=== PATIENT | male | born 1960 | race Caucasian/White ===

== ENCOUNTER → 2019-02-28 | Outpatient (CLI) | payer OTHER ==
--- NOTE | 2019-02-28 08:56 | NM ---
EXAMINATION TYPE: NM hepatobiliary w EF DATE OF EXAM: 02/28/2019 COMPARISON: NONE HISTORY: 02/02/2014 TECHNIQUE: After the intravenous administration of 4.9 mCi Tc 99m Mebrofenin hepatobiliary scintigrap hy is performed. Immediate images post injection. FINDINGS: There is satisfactory initial accumulation of tracer by the liver. The gallbladder is visualized wit hin 10 minutes. The small bowel activity is noted within Aishwarya minutes. At one hour 8 ounces of oral ensure plus is given to mimic CCK and gallbladder ejection fraction is calculated at 79 %, in th e normal range. Therefore there is no scintigraphic evidence of cystic or common bile duct obstructi on to suggest acute cholecystitis or gallbladder dyskinesia. IMPRESSION: Exam is within normal limits.
== END | disposition home or self-care (01) ==
LOC: RADNMMAIN 06:41
PROVIDERS: ATTEND Internal Medicine
DX: R10.9 Unspecified abdominal pain (principal)
CPT/HCPCS: 78226; A9537

== ENCOUNTER → 2020-04-02 | Outpatient (CLI) | payer OTHER ==
--- NOTE | 2020-04-02 08:02 | US ---
EXAMINATION TYPE: US abdomen complete DATE OF EXAM: 04/02/2020 COMPARISON: NONE CLINICAL HISTORY: R10.84 abd pain, N41.0 Acute prostatitis. EXAM MEASUREMENTS: Liver Length: 15.9 cm Gallbladder Wall: 0.2 cm CBD: 0.3 cm Spleen: 12.2 cm Right Kidney: 12.3 x 5.3 x 5.9 cm Left Kidney: 12.5 x 6.3 x 6.0 cm Pancreas: Obscured by bowel gas Liver: mild attenuation Gallbladder: wnl Evidence for sonographic Madrid's sign: no CBD: wnl Spleen: wnl Right Kidney: mildly enlarged Left Kidney: cyst measuring 1.2 x 1.0 x 1.2cm, mildly enlarged Upper IVC: wnl Abd Aorta: slight dilatation of iliacs, right measuring 1.3, left 1.1cm The intrahepatic portion of the IVC and proximal abdominal aorta are within normal limits. There is no evidence of cholelithiasis. Common bile duct is unremarkable. The visualized portions of the tee creas are homogenous. The spleen is unremarkable. Kidneys are symmetric and free of hydronephrosis. IMPRESSION: 1. Mild fatty hepatic infiltration. 2. Left renal cyst.
== END | disposition home or self-care (01) ==
LOC: RADUSWWP 07:05
PROVIDERS: ATTEND Family Medicine
DX: N28.1 Cyst of kidney, acquired (principal); K76.0 Fatty (change of) liver, not elsewhere classified
CPT/HCPCS: 76700

== ENCOUNTER 2020-07-04 08:42 | Day surgery (SDC) | payer OTHER ==
[2020-07-02 10:36] VITALS: BMI 33.3
[~2020-07-04 08:42] MED LIST: LACTATED RINGERS 1,000 ML IV SCH; LIDOCAINE 1% (10MG/ML) FOR IV START INTRADERMA PRN
[2020-07-04 09:04] VITALS: TEMP 97.2
[2020-07-04] MEDS ORDERED: PROPOFOL 10 MG/ML 20 ML VIAL IV ONE (09:35)
[2020-07-04] MEDS ORDERED: LIDOCAINE 1% INJ 10MG/ML (20 ML MDV) ONE (09:35)
--- NOTE | 2020-07-04 09:47 | P.PCN ---
Date of Procedure: 07/04/20 Procedure(s) Performed: BRIEF HISTORY: Patient is a 60-year-old, pleasant, white male scheduled for an upper endoscopy as a part of evaluation of long-standing history of GERD. He was recently started on Protonix 40 mg daily and no improvement in his symptoms. PROCEDURE PERFORMED: Esophagogastroduodenoscopy with biopsy. PREOPERATIVE DIAGNOSIS: Long-standing history of GERD. IV sedation per anesthesia. PROCEDURE: After informed consent was obtained, the patient was brought into the endoscopy unit. IV sedation was administered by Anesthesia under continuous monitoring. Initially the Olympus GIF-140 video endoscope was inserted into the mouth. Esophagus intubated without any difficulty. It was gradually advanced into the stomach and duodenum and carefully examined. The bulb and the second part of the duodenum appeared normal. The scope at this time was withdrawn to the stomach, adequately insufflated with air, and upon careful examination, mucosa of the antrum, had patchy areas of erythema noted and biopsies were done from this area. The body, cardia and the fundus appeared normal. The scope was then withdrawn into the esophagus. The GE junction was located at 45 cm from the incisors. The esophagus appeared normal. There were no erosions or ulcerations seen and biopsies were done from the distal esophagus and the patient tolerated the procedure well. IMPRESSION: 1. Normal-appearing esophagus with no evidence of esophagitis or Ramachandran's esophagus. 2. Mild antral gastritis. RECOMMENDATIONS: The findings of this examination were discussed with the patient as well as his family. He was advised to follow with the biopsy results. In the meantime he will increase the Protonix 40 mg twice daily and follow antireflux measures and he will be seen in office in one to 2 weeks..
[2020-07-04 10:15] VITALS: BP 123/79; PULSE 58; RESP 16
== END 2020-07-04 10:30 | disposition home or self-care (01) ==
LOC: ORWHC2ENDO 08:42
PROVIDERS: ATTEND Internal Medicine Gastroenterology
DX: K29.70 Gastritis, unspecified, without bleeding (principal); K21.9 Gastro-esophageal reflux disease without esophagitis; K31.9 Disease of stomach and duodenum, unspecified; E78.5 Hyperlipidemia, unspecified; Z79.899 Other long term (current) drug therapy; Z79.82 Long term (current) use of aspirin; Z88.8 Allergy status to other drugs, medicaments and biological substances
CPT/HCPCS: 88305; 43239; J2001; J2704

== ENCOUNTER 2021-02-17 16:29 | Emergency (ER) | payer OTHER ==
[2021-02-17 16:51] VITALS: RESP 18
[2021-02-17] MEDS ORDERED: SODIUM CHLORIDE 0.9% 1,000 ML IV STA (17:52)
[2021-02-17] MEDS ORDERED: MAG HYDROX/AL HYDROX/SIMETH 30 ML, HYOSCYAMINE ELIXIR 10 ML, LIDOCAINE VISCOUS 2% 10 ML PO STA ×3 (17:54)
--- NOTE | 2021-02-17 17:59 | ED ---
General Adult HPI - General Chief complaint: Abdominal Pain Stated complaint: Acid Reflux Time Seen by Provider: 02/17/21 17:30 Source: patient, family, RN notes reviewed Mode of arrival: ambulatory Limitations: no limitations - History of Present Illness Initial comments: Patient is a pleasant 60-year-old male presenting to the emergency department with concerns for possible acid reflux. Patient has had chronic symptoms for years. Symptoms have been worse the past 3 or 4 days. Patient has discomfort in his throat as well as his neck and upper back. Patient also has some abdominal discomfort. Patient denies having any chest discomfort. Patient did go to the chiropractor which usually helps for this however did not have improvement with that. Patient did have recent stress test that was reported as normal to him. Patient also recently had upper endoscopy. - Related Data Home Medications Medication Instructions Recorded Confirmed Aspirin EC [Ecotrin] 81 mg PO DAILY 05/01/14 07/02/20 Atorvastatin [Lipitor] 20 mg PO DAILY 05/01/14 07/02/20 Multivitamins, Thera [Multivitamin] 1 each PO DAILY 05/01/14 07/02/20 Allergies Allergy/AdvReac Type Severity Reaction Status Date / Time STEROIDS Allergy Swelling Uncoded 02/17/21 16:51 Review of Systems ROS Statement: Those systems with pertinent positive or pertinent negative responses have been documented in the HPI. ROS Other: All systems not noted in ROS Statement are negative. Constitutional: Denies: fever Eyes: Denies: eye pain ENT: Reports: as per HPI, throat pain. Denies: ear pain Respiratory: Denies: cough, dyspnea Cardiovascular: Denies: chest pain Endocrine: Reports: fatigue Gastrointestinal: Reports: as per HPI, abdominal pain Genitourinary: Denies: dysuria Musculoskeletal: Reports: as per HPI, back pain Skin: Denies: rash Neurological: Denies: weakness Past Medical History Past Medical History: GERD/Reflux, Hyperlipidemia History of Any Multi-Drug Resistant Organisms: None Reported Past Surgical History: Heart Catheterization Additional Past Surgical History / Comment(s): COLONOSCOPY Past Anesthesia/Blood Transfusion Reactions: No Reported Reaction Past Psychological History: No Psychological Hx Reported Smoking Status: Never smoker Past Alcohol Use History: Rare Past Drug Use History: None Reported - Past Family History Mother Family Medical History: No Reported History General Exam Limitations: no limitations General appearance: alert, in no apparent distress Head exam: Present: normocephalic Eye exam: Present: normal appearance Neck exam: Present: normal inspection Respiratory exam: Present: normal lung sounds bilaterally Cardiovascular Exam: Present: regular rate, normal rhythm Expanded Peripheral pulses: 2+: Radial (R), Radial (L), Dorsalis Pedis (R), Dorsalis Pedis (L) GI/Abdominal exam: Present: soft, tenderness (Mild epigastric and lower abdominal discomfort) Extremities exam: Present: normal inspection. Absent: pedal edema, calf tenderness Back exam: Present: tenderness (Mild tenderness left upper thoracic region, lateral to T3-T4) Neurological exam: Present: alert Psychiatric exam: Present: normal affect, normal mood Skin exam: Present: normal color Course Vital Signs 02/17/21 02/17/21 02/17/21 16:46 18:05 19:00 Temperature 98.6 F 97.8 F Pulse Rate 91 87 63 Respiratory 18 18 18 Rate Blood Pressure 151/94 124/89 152/66 O2 Sat by Pulse 97 96 98 Oximetry EKG Findings - EKG Comments: EKG Findings:: Normal sinus rhythm with a rate of 86. W[place] 158. QRS 108. QT 380. QTC 454. Normal axis. Normal QRS. No acute ST change. Medical Decision Making - Medical Decision Making Patient reevaluated and significant improvement following GI cocktail. Patient requests discharge home. Patient and family updated on results and need for follow-up. Patient states he used to be on Nexium which helped him a lot however prescription cost for him was too high. Patient is advised to consider taking this [id number]. - Lab Data Result diagrams: 02/17/21 17:50 02/17/21 17:50 Lab Results 02/17/21 02/17/21 02/17/21 Range/Units 17:50 17:50 17:50 WBC 9.0 (3.8-10.6) k/uL RBC 4.82 (4.30-5.90) m/uL Hgb 14.4 (13.0-17.5) gm/dL Hct 43.1 (39.0-53.0) % MCV 89.4 (80.0-100.0) fL MCH 29.8 (25.0-35.0) pg MCHC 33.4 (31.0-37.0) g/dL RDW 12.6 (11.5-15.5) % Plt Count 231 (150-450) k/uL MPV 7.6 Neutrophils % 62 % Lymphocytes % 27 % Monocytes % 7 % Eosinophils % 1 % Basophils % 0 % Neutrophils # 5.6 (1.3-7.7) k/uL Lymphocytes # 2.5 (1.0-4.8) k/uL Monocytes # 0.6 (0-1.0) k/uL Eosinophils # 0.1 (0-0.7) k/uL Basophils # 0.0 (0-0.2) k/uL PT 10.1 (9.0-12.0) sec INR 0.9 (<1.2) APTT 23.8 (22.0-30.0) sec Sodium 138 (137-145) mmol/L Potassium 4.0 (3.5-5.1) mmol/L Chloride 104 (98-107) mmol/L Carbon Dioxide 25 (22-30) mmol/L Anion Gap 9 mmol/L BUN 30 H (9-20) mg/dL Creatinine 0.84 (0.66-1.25) mg/dL Est GFR (CKD-EPI)AfAm >90 (>60 ml/min/1.73 sqM) Est GFR (CKD-EPI)NonAf >90 (>60 ml/min/1.73 sqM) Glucose 102 H (74-99) mg/dL Calcium 9.4 (8.4-10.2) mg/dL Total Bilirubin 0.3 (0.2-1.3) mg/dL AST 35 (17-59) U/L ALT 26 (4-49) U/L Alkaline Phosphatase 42 (38-126) U/L Troponin I (0.000-0.034) ng/mL Total Protein 6.8 (6.3-8.2) g/dL Albumin 4.2 (3.5-5.0) g/dL Amylase 63 (30-110) U/L Lipase 180 (23-300) U/L 02/17/21 Range/Units 17:50 WBC (3.8-10.6) k/uL RBC (4.30-5.90) m/uL Hgb (13.0-17.5) gm/dL Hct (39.0-53.0) % MCV (80.0-100.0) fL MCH (25.0-35.0) pg MCHC (31.0-37.0) g/dL RDW (11.5-15.5) % Plt Count (150-450) k/uL MPV Neutrophils % % Lymphocytes % % Monocytes % % Eosinophils % % Basophils % % Neutrophils # (1.3-7.7) k/uL Lymphocytes # (1.0-4.8) k/uL Monocytes # (0-1.0) k/uL Eosinophils # (0-0.7) k/uL Basophils # (0-0.2) k/uL PT (9.0-12.0) sec INR (<1.2) APTT (22.0-30.0) sec Sodium (137-145) mmol/L Potassium (3.5-5.1) mmol/L Chloride (98-107) mmol/L Carbon Dioxide (22-30) mmol/L Anion Gap mmol/L BUN (9-20) mg/dL Creatinine (0.66-1.25) mg/dL Est GFR (CKD-EPI)AfAm (>60 ml/min/1.73 sqM) Est GFR (CKD-EPI)NonAf (>60 ml/min/1.73 sqM) Glucose (74-99) mg/dL Calcium (8.4-10.2) mg/dL Total Bilirubin (0.2-1.3) mg/dL AST (17-59) U/L ALT (4-49) U/L Alkaline Phosphatase (38-126) U/L Troponin I <0.012 (0.000-0.034) ng/mL Total Protein (6.3-8.2) g/dL Albumin (3.5-5.0) g/dL Amylase (30-110) U/L Lipase (23-300) U/L - Radiology Data Radiology results: report reviewed (Computed tomography scan reveals no acute process) Disposition Clinical Impression: Abdominal pain Disposition: HOME SELF-CARE Condition: Stable Instructions (If sedation given, give patient instructions): Abdominal Pain (ED), Gastroesophageal Reflux Disease (ED) Additional Instructions: Please do follow-up to primary care physician and gets her neurologist in the next couple days for recheck. Return for chest pain, increased back or abdominal pain, vomiting, worsening or changing symptoms or other concerns. Is patient prescribed a controlled substance at d/c from ED?: No Referrals: Tushar Waters MD [Primary Care Provider] - 1-2 days Time of Disposition: 19:53
[2021-02-17 18:06] VITALS: TEMP 97.8
[2021-02-17 18:08] LABS: Basophils % (A) 0 %; Eosinophils # (A) 0.1 k/uL (0-0.7); Eosinophils % (A) 1 %; HCT 43.1 % (39.0-53.0); HGB 14.4 gm/dL (13.0-17.5); Lymphocytes # (A) 2.5 k/uL (1.0-4.8); Lymphocytes % (A) 27 %; MCH 29.8 pg (25.0-35.0); MCHC 33.4 g/dL (31.0-37.0); MCV 89.4 fL (80.0-100.0); Mean Platelet Volume 7.6; Monocytes # (A) 0.6 k/uL (0-1.0); Monocytes % (A) 7 %; Neutrophils # (A) 5.6 k/uL (1.3-7.7); Neutrophils % (A) 62 %; Platelet Count 231 k/uL (150-450); RBC 4.82 m/uL (4.30-5.90); RDW 12.6 % (11.5-15.5)
[2021-02-17 18:14] LABS: INR 0.9 (<1.2); Partial Thromboplastin Time 23.8 sec (22.0-30.0); Prothrombin Time 10.1 sec (9.0-12.0)
[2021-02-17 18:16] LABS: ALT 26 U/L (4-49); AST 35 U/L (17-59); African American GFR (CKD) >90 (>60 ml/min/1.73 sqM); Albumin 4.2 g/dL (3.5-5.0); Alkaline Phosphatase 42 U/L (38-126); Amylase 63 U/L (30-110); Anion Gap 9 mmol/L; Blood Urea Nitrogen 30 mg/dL (9-20); Calcium 9.4 mg/dL (8.4-10.2); Carbon Dioxide 25 mmol/L (22-30); Chloride 104 mmol/L (98-107); Glucose 102 mg/dL (74-99); Lipase 180 U/L (23-300); Non-African American GFR(CKD) >90 (>60 ml/min/1.73 sqM); Sodium 138 mmol/L (137-145); Total Bilirubin 0.3 mg/dL (0.2-1.3); Total Protein 6.8 g/dL (6.3-8.2)
[2021-02-17 19:26] VITALS: BP 152/66; PULSE 63
--- NOTE | 2021-02-17 19:34 | CT ---
EXAMINATION TYPE: CT angio thor/abd pel aorta DATE OF EXAM: 02/17/2021 COMPARISON: None HISTORY: Abdominal pain. Back pain CT DLP: mGycm Automated exposure control for dose reduction was used. CONTRAST: Performed , patient injected with mL of . The contrast was Isovue 100 mL. There are 3-D post processed images. Images obtained from the thoraci c inlet to the floor the pelvis without and with IV contrast. There are 3-D post processed images. The lungs are clear of infiltrate. There is no evidence of a pulmonary mass. There is no pleural effu chantal. There is no pericardial effusion. There is no mediastinal adenopathy. There are no hilar masses . Thoracic aorta is intact. There is no aneurysm or dissection. Heart size is normal. Liver spleen stomach pancreas appear intact. The bile ducts are nondilated. Gallbladder is contracted . There is no adrenal mass. Kidneys show satisfactory contrast opacification. There is no hydronephrosi s. Ureters are not dilated. Bladder distends smoothly. There is no inguinal hernia. There is no free fluid in the pelvis. Thoracic and abdominal aorta are intact. There is arterial flow in the celiac artery and superior mes enteric artery. There is arterial flow in both renal arteries. There is arterial flow in the iliac an d femoral arteries and the inferior mesenteric artery. There is minimal prostate calcification. There is no mesenteric edema. There is no ascites or free air. There is no bowel obstruction. There i s 7 mm calculus lower pole right kidney. There is no hydronephrosis. Appendix appears normal. Thoraci c and lumbar spine appear intact. The bony pelvis is intact. Hip joints are intact. The sternum is in tact. IMPRESSION: Negative CT angiogram of the chest abdomen pelvis. No evidence of pulmonary embolism. No evidence of arterial aneurysm or dissection. No suspicious pulmonary mass.
== END 2021-02-17 19:57 | disposition home or self-care (01) ==
LOC: EC 16:29
DX: R10.9 Unspecified abdominal pain (principal); E78.5 Hyperlipidemia, unspecified; Z88.8 Allergy status to other drugs, medicaments and biological substances; Z79.899 Other long term (current) drug therapy
CPT/HCPCS: 36415; 93005; 80053; 82150; 83690; 84484; 85025; 85610; 85730; 71275; 74174; 99284; 96360; Q9967

== ENCOUNTER 2022-11-12 09:53 | Day surgery (SDC) | payer OTHER ==
[~2022-11-12 09:53] MED LIST changes: +FAMOTIDINE 20 MG/2 ML VIAL IV PRN; +HYDROmorphone 0.5 MG/0.5 ML SYRINGE IVP PRN; +ONDANSETRON 4 MG/2 ML VIAL IVP PRN; +ceFAZolin 3 GM in SODIUM CHLORIDE 0.9% 100 ML IVPB PRN
[2022-11-12] MEDS ORDERED: LIDOCAINE 1%-EPI 1:100,000 50 ML VIAL SQ ONE ×2 (11:09→11:34)
[2022-11-12] MEDS ORDERED: LIDOCAINE 2% INJ 20 MG/ML (2 ML VIAL) ONE (11:11)
[2022-11-12] MEDS ORDERED: SUCCINYLCHOLINE CHLORIDE 200 MG/10 ML VIAL IV ONE (11:11)
[2022-11-12] MEDS ORDERED: fentaNYL (PF) 50 MCG/ML 2 ML AMP ONE (11:11)
[2022-11-12] MEDS ORDERED: MIDAZOLAM 2 MG/2 ML VIAL ONE (11:11)
[2022-11-12] MEDS ORDERED: PROPOFOL 10 MG/ML 20 ML VIAL IV ONE (11:11)
[2022-11-12] MEDS ORDERED: BACITRACIN ZINC 500 UNIT/GM OINT 28.4 GM TUBE TOPICAL ONE (12:50)
--- NOTE | 2022-11-12 13:02 | P.OP ---
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 CT and final aspiration consistent with a left branchial cleft cyst Operative Findings: Cystic mass left upper neck anterior to the sternocleidomastoid muscle and just posterior to the carotid sheath approximately 3 cm. Serous fluid within this Description of Procedure: Patient brought in the operative suite and placed in a supine position. Patient underwent induction of general anesthesia with oral endotracheal intubation without difficulty. The patient was prepped and draped in usual aseptic fashion. Prior to this the NIM II facial nerve monitor was placed and tested and was working well to monitor particularly the lower division of the facial nerve. 1% lidocaine with 1 100,000 epinephrine was infused subcutaneously over the left neck at the proposed incision site. This was left to work for 7 minutes vasoconstrictive effect. Transverse cervical incision was made 3 fingerbreadths below the angle of the mandible over the mass and carried sharply through the skin and subcutaneous tissue and platysma layer. The anterior border of the sternocleidomastoid muscle was identified and dissected along the anterior margin of the sternocleidomastoid muscle to identify cyst itself. Dissection of the mass from surrounding tissue was performed grossly entirely. Upon removal of the lateral aspect opened with serous fluid noted through a rent in the cyst. The cyst however was removed grossly entirely. Hemostasis gained with bipolar cautery. The wound was irrigated sterile normal saline and excellent hemostasis was noted. Wound was then closed in the muscular layer including platysmal layer with inverted interrupted 4-0 Vicryl suture subcutaneous tissue was closed in 2 layers with inverted interrupted 4-0 Vicryl suture and skin closed with running locking 4-0 Prolene suture. Bacitracin ointment and sterile dressing was placed. The patient tolerated procedure well and was extubated in the operative suite and transferred to postop recovery area in satisfactory condition.
[2022-11-12 13:09] VITALS: TEMP 97.2
[2022-11-12 14:26] VITALS: BP 158/76; PULSE 78; RESP 18
== END 2022-11-12 14:35 | disposition home or self-care (01) ==
LOC: OR 09:53
PROVIDERS: ATTEND Otolaryngology
DX: Q18.0 Sinus, fistula and cyst of branchial cleft (principal); K21.9 Gastro-esophageal reflux disease without esophagitis; I10 Essential (primary) hypertension; Z79.1 Long term (current) use of non-steroidal anti-inflammatories (NSAID); Z79.899 Other long term (current) drug therapy; Z79.82 Long term (current) use of aspirin; Z88.8 Allergy status to other drugs, medicaments and biological substances
CPT/HCPCS: 42810; C1763; J2250; J0330; J0690; J2405; J3010; J2704; J2001; 88305; 88341; 88342

== ENCOUNTER → 2022-12-05 | Outpatient (CLI) | payer OTHER ==
--- NOTE | 2022-12-05 22:56 | PE ---
EXAMINATION TYPE: PET CT fusion skull to thigh DATE OF EXAM: 12/05/2022 CLINICAL INDICATION:Male, 62 years old with history of Head and neck ca; TECHNIQUE: Following the intravenous administration of 9.8 mCi of F-18 FDG, whole body images are p erformed from the skull base to the midthigh. Images are reviewed on the computer in the coronal, ax ial, and sagittal planes. Reconstructed rotating images are created on independent workstation and r eviewed on the computer. A non-contrast CT is performed in conjunction with the PET scan. Glucose l evel 87 mg/dL CT DLP: 797 mGycm, Automated exposure control for dose reduction was used. COMPARISON: CT 02/17/2021, PET/CT None, FINDINGS: Mediastinal SUV mean is 1.8. Hepatic parenchyma SUV mean is 2.4. SKULL BASE AND NECK: There may be subtle asymmetric uptake within the left tongue base/mucosa max HARRIS V 8.3 and on the right max SUV 4.5. There is abnormal uptake within the left neck anterior chain lymp h node max SUV 5.4 measuring 10 mm in short axis. CHEST, MEDIASTINUM, AND HILAR REGION: No suspicious radiotracer activity. ABDOMEN AND PELVIS: No suspicious radiotracer activity. MUSCULOSKELETAL STRUCTURES: No suspicious radiotracer activity. OTHER CT: Atherosclerosis at the carotid bifurcations. Coronary artery calcifications. Nonobstructing right renal calculi. Left exophytic renal cyst. Fat-containing umbilical hernia. Colonic diverticulo sis. Prostate gland is enlarged measuring up to 4.7 cm. IMPRESSION: Asymmetric uptake within the left base of tongue/mucosa at least one lymph node demonstrating mildly asymmetric uptake concerning for metastatic disease.
== END | disposition home or self-care (01) ==
LOC: RADPETMAIN 09:09
PROVIDERS: ATTEND Otolaryngology
DX: C77.0 Secondary and unspecified malignant neoplasm of lymph nodes of head, face and neck (principal)
CPT/HCPCS: 78815; A9552

== ENCOUNTER → 2023-06-10 | Outpatient (CLI) | payer OTHER ==
[2023-06-10 11:00] LABS: Basophils # (A) 0.02 X 10*3/uL (0.00-0.10); Basophils % (A) 0.5 %; Eosinophils # (A) 0.08 X 10*3/uL (0.04-0.35); Eosinophils % (A) 1.9 %; HCT 44.8 % (39.6-50.0); HGB 13.7 g/dL (13.0-17.0); Lymphocytes # (A) 0.76 X 10*3/uL (0.90-5.00); Lymphocytes % (A) 18.2 %; MCH 27.6 pg (27.0-32.0); MCHC 30.6 g/dL (32.0-37.0); MCV 90.1 FL (80.0-97.0); Mean Platelet Volume 9.8 FL (9.5-12.2); Monocytes # (A) 0.55 X 10*3/uL (0.20-1.00); Monocytes % (A) 13.2 %; NRBC Per 100 WBC 0 X 10*3/uL (0.00-0.01); Neutrophils # (A) 2.73 X 10*3/uL (1.80-7.70); Neutrophils % (A) 65.5 %; Platelet Count 267 X 10*3/uL (140-440); RBC 4.97 X 10*6/uL (4.40-5.60); RDW 13.1 % (11.5-14.5); WBC 4.17 X 10*3/uL (4.50-10.00)
[2023-06-10 11:33] LABS: Erythrocyte Sedimentation Rate 31 mm/Hr (0-20)
[2023-06-10 11:44] LABS: Creatine Kinase 86 U/L (35-257); Rheumatoid Factor, Qnt <15 IU/mL (0-15); Uric Acid 5.9 mg/dL (3.7-8.7)
[2023-06-10 11:45] LABS: ALT 16 U/L (10-49); AST 16 U/L (14-35); BUN/Creat Ratio 19.86 Ratio (12.00-20.00); Blood Urea Nitrogen 13.9 mg/dL (9.0-27.0); Calcium 9.7 mg/dL (8.7-10.3); Carbon Dioxide 28.6 mmol/L (21.6-31.8); Chloride 103 mmol/L (96-109); Glucose 102 mg/dL (70-110); Potassium 4.3 mmol/L (3.5-5.5); Sodium 143 mmol/L (135-145); T4, Free (Free Thyroxine) 1.11 ng/dL (0.80-1.80)
[2023-06-10 13:42] LABS: Cyclic Citrull Pep IgG Unit <1.5 U/mL (<=3.9); Cyclic Citrullinated Pep IgG Negative
[2023-06-11 10:09] LABS: Angiotensin-1 Converting Enz. 16 U/L (8-52)
[2023-06-11 10:58] LABS: HLA B27 NEGATIVE
== END | disposition home or self-care (01) ==
LOC: LABWHC1 06:56
PROVIDERS: ATTEND Podiatrist
DX: M06.9 Rheumatoid arthritis, unspecified (principal); M79.671 Pain in right foot; M79.672 Pain in left foot
CPT/HCPCS: 36415; 80048; 82164; 82306; 82550; 83520; 84439; 84443; 84450; 84460; 84550; 85025; 85652; 86038; 86140; 86200; 86431; 86812

== ENCOUNTER 2024-07-13 06:18 | Day surgery (SDC) | payer OTHER ==
[2024-07-13] MEDS: IV FLUID CONTINUATION 1,000 ML IV ONE (06:45)
[2024-07-13] MEDS ORDERED: LACTATED RINGERS 1,000 ML IV SCH (06:49)
[2024-07-13 06:55] VITALS: RESP 16; TEMP 98.5
[2024-07-13] MEDS ORDERED: PROPOFOL 10 MG/ML 20 ML VIAL IV ONE (07:30)
[2024-07-13] MEDS ORDERED: LIDOCAINE 1% INJ 10MG/ML (20 ML MDV) ONE (07:30)
--- NOTE | 2024-07-13 07:48 | P.PCN ---
Date of Procedure: 07/13/24 Procedure(s) Performed: Brief history: Patient is a pleasant 64-year-old white male scheduled for an elective upper endoscopy as well as colonoscopy as a part of evaluation of GERD and left lower quadrant abdominal pain for the last several months duration. Procedure performed: Esophagogastroduodenoscopy with biopsy Colonoscopy Preoperative diagnosis: GERD Left lower quadrant abdominal pain Anesthesia: MAC Procedure: After informed consent was obtained from the patient was brought into the endoscopy unit and IV sedation was administered by anesthesia under continuous monitoring. Initially upper endoscopy was done. The Olympus GF 160 video endoscope was inserted inserted into the mouth and esophagus intubated without any difficulty and was gradually advanced into the stomach and duodenum and carefully examined. The bulb and second part of the duodenum appeared normal. The scope was then withdrawn into the stomach adequately insufflated with air and upon careful examination the antrum and mild gastritis and biopsies were done from this area. Mucosa of the body, cardia and fundus appeared normal. The scope was then withdrawn into the esophagus. The GE junction was located at 44 cm to the incisors. It appeared regular with no erythema erosions or ulcerations. Rest of the esophagus appeared normal. Patient tolerated the procedure well. At this time the patient continued to remain sedation. Initial digital rectal examination was normal. Olympus CF 160 video colonoscope was then inserted into the rectum and gradually advanced to the cecum without any difficulty. Careful examination was performed as the scope was gradually being withdrawn. The prep was excellent. The cecum, ascending colon, transverse colon, descending colon, sigmoid colon and rectum appeared normal. Retroflexion was performed in the rectum and no lesions were noted. Patient tolerated the procedure well. Impression: 1. Upper endoscopy revealed mild antral gastritis but no evidence of esophagitis or peptic ulcer disease 2. Colonoscopy Recommendations: Findings of this examination were discussed with the patient as well as his family. He was advised to follow with the biopsy results. Recommended repeat screening colonoscopy in 10 years.
[2024-07-13 08:09] VITALS: BP 149/80; PULSE 73
== END 2024-07-13 08:26 ==
LOC: ORWHC2ENDO 06:18
PROVIDERS: ATTEND Internal Medicine Gastroenterology
DX: K29.50 Unspecified chronic gastritis without bleeding (principal); K21.9 Gastro-esophageal reflux disease without esophagitis; R10.32 Left lower quadrant pain; I10 Essential (primary) hypertension; M10.9 Gout, unspecified; E66.01 Morbid (severe) obesity due to excess calories; Z79.82 Long term (current) use of aspirin; Z79.899 Other long term (current) drug therapy; Z88.8 Allergy status to other drugs, medicaments and biological substances; Z68.34 Body mass index [BMI] 34.0-34.9, adult
CPT/HCPCS: 88305; 45378; 43239; J2003; J2704

== ENCOUNTER → 2024-11-08 | Outpatient (CLI) | payer MEDICARE, BC ==
--- NOTE | 2024-11-08 13:22 | US ---
EXAMINATION TYPE: US thyroid st tissue head/neck DATE OF EXAM: 11/08/2024 COMPARISON: NONE CLINICAL INDICATION: Male, 64 years old with history of E03.9 HYPOTHYROID TECHNIQUE: Grayscale and color Doppler imaging of the thyroid gland. FINDINGS: GLAND SIZE: Right Lobe: 4.5 x 1.3 x 1.5 cm Overall Parenchyma: Mildly heterogeneous Left Lobe: 3.5 x 1.7 x 1.4 cm Overall Parenchyma: Mildly heterogeneous Isthmus Thickness: 0.3 cm NODULES RIGHT: # of nodules measured on right: 0 LEFT: # of nodules measured on left: 0 ISTHMUS: # of nodules measured in the isthmus: 0 Bilateral neck scanned, no evidence of lymphadenopathy. IMPRESSION: Mildly heterogeneous thyroid parenchyma which can be seen with chronic hypothyroidism. No discrete no dules. [facility], Workstation: [email or web address] H[facility]ITALAquatic InformaticsSHAHEED, 11/08/2024 1:20 PM
== END | disposition home or self-care (01) ==
LOC: RADUSWWP 10:09
PROVIDERS: ATTEND Internal Medicine
DX: E03.9 Hypothyroidism, unspecified (principal); E07.89 Other specified disorders of thyroid
CPT/HCPCS: 76536